=== PATIENT | male | born 1930 | race Hispanic/Latino ===

== ENCOUNTER → 2018-12-07 | Outpatient (CLI) | payer OTHER, MEDICARE ==
[~2018-12-07] MED LIST: ASPI-1181 PO; ATOR40TA71 PO; AZAT50TA PO; FINA5TAB41 PO; GLIP5TAB11 PO; LISI-613 PO; PYRI60TA PO; TAMS0.4C32 PO
== END | disposition home or self-care (01) ==
LOC: SHCH 10:00
PROVIDERS: ATTEND Internal Medicine Cardiovascular Disease
DX: I07.1 Rheumatic tricuspid insufficiency (principal); Z95.3 Presence of xenogenic heart valve; Z95.0 Presence of cardiac pacemaker; Z95.2 Presence of prosthetic heart valve
CPT/HCPCS: 93306